=== PATIENT | female | born 1995 | race Caucasian/White ===

== ENCOUNTER 2023-11-19 08:52 | Emergency (ER) | payer BC, SELFPAY ==
[2023-11-19 09:06] VITALS: BP 128/90; PULSE 79; RESP 18; TEMP 36.6; O2SAT 99
--- NOTE | 2023-11-19 09:27 | ED.URI ---
HPI - URI/Sore Throat General Chief Complaint: Upper Respiratory Infection Stated Complaint: Cough Time Seen by Provider: 11/19/23 09:27 Source: patient and RN notes reviewed Mode of arrival: ambulatory Limitations: no limitations History of Present Illness HPI Narrative: 27-year-old female presents to the [facility] with complaints of a cough, congestion, sore throat and headache for 3 days. Tried taking NyQuil last night as well as Mucinex yesterday. Onset (ago): day(s) (3) Treatments prior to arrival: cold medicine Related Data Allergies Allergy/AdvReac Type Severity Reaction Status Date / Time No Known Allergies Allergy Verified 11/19/23 09:44 Review of Systems Review of Systems: All systems reviewed & are unremarkable except as noted in HPI and below Constitutional: Constitutional: Reports no additional constitutional complaints Eyes: Eyes: Reports no additional eye complaints ENT: Reports as per HPI Cardiovascular: Cardiovascular: Reports no additional cardiovascular complaints, Denies chest pain and Denies dyspnea Respiratory: Respiratory: Reports as per HPI, Denies chest congestion, Reports cough and Denies dyspnea Gastrointestinal: Gastrointestinal: Reports no additional gastrointestinal complaints, Denies abdominal pain, Denies nausea and Denies vomiting Musculoskeletal: Musculoskeletal: Reports no additional musculoskeletal complaints Integumentary/Breasts: Skin/Breast: Reports system reviewed and no additional complaints, except as docu Neurologic: Reports system reviewed and no additional complaints, except as documented Psychiatric: Psychiatric: Reports no additional psychiatric complaints Allergic/Immunologic: Allergic/Immunologic: Reports no additional allergic/immunologic complaints PMFSH Comments At the time of my signature, I reviewed and agree with the nursing past medical, surgical, social, and family history. There is no relevant family history pertinent to the patient complaint. Exam Const: General: cooperative, healthy appearing, comfortable, no acute distress, well developed, alert and well nourished Nutritional Appearance: well nourished Orientation/consciousness: patient oriented x3 Limitations: no limitations HENMT: Head: normal to inspection Ears: hearing grossly normal bilaterally, external ears normal, EAC's normal, mastoids normal, no periauricular adenopathy and TM abnormal with fluid behind the TM bilateral; not erythematous Face/Nose/Sinus: Normal external nose present, Normal nares present, Normal nasal mucous membranes and turbinates present, normal facial exam and face symmetric Face and sinus: normal facial exam and face symmetric Mouth: Yes Normal oral and palatal mucosa present, Yes lip normal and Yes tongue normal Throat: uvula midline, postnasal drainage and no uvular edema Eyes: General: appearance normal, both eyes and all related structures Alignment and Position: alignment normal Periorbital: periorbital findings normal Pupils: Equal, round and reactive pupils present EOM: EOMs intact bilaterally Neck: Neck: normal visual inspection, full ROM, no lymphadenopathy and no meningeal signs Chest: Chest palpation & inspection: normal inspection of the chest Resp: Effort & Inspection: normal respiratory effort and able to speak in complete sentences Auscultation: clear to auscultation bilaterally, no crackles, no rales, no rhonchi and no wheezes Cardio: Rate: regular rate Rhythm: regular rhythm Skin: General skin exam: normal color and no rashes or lesions noted Lesions: no lesions Rashes: no rashes Trauma: no lacerations or abrasions Wounds: no wounds Neuro: General: patient oriented x3, gait normal, tone normal, moves all extremities and no meningeal signs Cranial nerves: Yes Equal, round and reactive pupils present Cognition (Neuro): normal cognition Speech: normal speech Gait exam (Neuro): Normal gait present Extrem: General: normal to inspection,
== END 2023-11-19 10:00 | disposition home or self-care (01) ==
PROVIDERS: Emergency Provider Nurse Practitioner
DX: R09.82 Postnasal drip (principal); H65.03 Acute serous otitis media, bilateral; Z20.822 Contact with and (suspected) exposure to COVID-19
CPT/HCPCS: 87081; 87426; 87804; 87880; 99213; G0463

== ENCOUNTER 2023-12-09 13:02 | Emergency (ER) | payer BC, SELFPAY ==
--- NOTE | 2023-12-09 13:06 | ED.URI ---
HPI - URI/Sore Throat General Chief Complaint: Upper Respiratory Infection Stated Complaint: cough Time Seen by Provider: 12/09/23 13:06 Source: patient Mode of arrival: ambulatory Limitations: no limitations History of Present Illness HPI Narrative: Paulina is a 27-year-old female patient presenting to the clinic today with complaints of a cough and nasal congestion. Nasal congestion is been going on for 2-3 weeks but has now developed a nonproductive cough. Cough is worse in the morning and at nighttime. She states that she has stopped vaping over the last couple weeks and associated the cough to this. Found out that her parents have COVID and she was around them over the weekend. She reports she did at home COVID test and it was positive. She is wanting to come in today to be evaluated and have another COVID test done to be sure so she can notify her work. She denies any fever, chills, chest pain, or shortness of breath. MD elicited complaint: cough and nasal congestion Related Data Home Medications Medication Instructions Recorded Confirmed fluticasone propionate 50 2 spray intranasal DAILY PRN 12/09/23 12/09/23 mcg/actuation nasal Allergy Symptoms spray,suspension (Flonase Allergy Relief) loratadine 10 mg tablet 10 mg PO DAILY PRN Allergy Symptoms 12/09/23 12/09/23 Allergies Allergy/AdvReac Type Severity Reaction Status Date / Time No Known Allergies Allergy Verified 12/09/23 13:04 Review of Systems Review of Systems: Pertinent positives per HPI. Patient denies any fever, chills, rash, headache, visual changes, dizziness, shortness of breath, chest pain, palpitations, nausea, vomiting, diarrhea, constipation, abdominal pain, or any urinary issues. PMFSH Comments At the time of my signature, I reviewed and agree with the nursing past medical, surgical, social, and family history. There is no relevant family history pertinent to the patient complaint. Exam Narrative: General: Well-developed, well nourished, in no apparent distress Head: Normocephalic, atraumatic Eyes: Pupils equally round and reactive to light bilaterally, EOM intact, sclera and conjunctive clear, no discharge, lids normal Ears: TMs intact and clear, ear canals clear, no drainage, grossly hearing normal. Nose: Nares patent, clear nasal discharge, moderate inflammation, no sinus tenderness. Mouth: Oral pharynx without lesions or masses, good dentition, MMM. Neck: Supple, trachea midline, no enlargement of anterior or posterior cervical nodes, no thyroid masses or goiter palpable. Cardio: Regular rate and rhythm, s1 and s2 normal, no murmur appreciated. Resp: Clear to auscultation bilaterally, no rhonchi, rales, wheezing or rubs Course Course Emergency Course: Portions of this record may have been created with voice recognition software. Level of Care: Express Care Visit Vital Signs Vital signs: Vital signs reviewed MDM - URI/Sore Throat MDM Narrative Medical decision making narrative: At the time of visit patient is resting comfortably on the exam table. Patient appears to be nontoxic. Labs: Covid testing was positive in the clinic today. Plan: I suspect patient has bronchitis with positive COVID. Prescription for albuterol inhaler was sent to pharmacy and work note was given to the patient. Supportive measures were discussed with the patient and they voiced understanding discharge instructions and agrees to treatment plan. Return precautions reviewed Differential Diagnosis Differential diagnosis: Likely upper respiratory infection, otitis media, sinusitis, viral infection, bronchitis, influenza, pharyngitis and other Discharge Plan Discharge Clinical Impression: Bronchitis, COVID-19 Patient Disposition: Home, Self-Care Condition: Stable Instructions: Antibiotic Form, Acute Bronchitis (ED), COVID-19 (Coronavirus Disease 2019) (ED) Additional Instructions: COVID testing was positive in the c
[2023-12-09 13:10] VITALS: BP 138/94; PULSE 82; RESP 20; TEMP 36.6; O2SAT 97
== END 2023-12-09 13:30 | disposition home or self-care (01) ==
PROVIDERS: Emergency Provider Nurse Practitioner Family
DX: J40 Bronchitis, not specified as acute or chronic (principal); U07.1 COVID-19
CPT/HCPCS: 87426; 99213; G0463

== ENCOUNTER → 2023-12-14 13:48 | Outpatient (CLI) | payer BC, SELFPAY ==
--- NOTE | ~2023-12-14 | XR_ITS ---
EXAMINATION: XR chest 2V 12/14/2023 14:04 INDICATION: Productive cough PROCEDURE: 2 view chest COMPARISON: No prior studies for comparison. FINDINGS: The lungs are clear. The cardiomediastinal silhouette is within normal limits. There are no pleural effusions. There is no pneumothorax suspected. IMPRESSION: 1: NO ACUTE CARDIOPULMONARY DISEASE. Reviewed, dictated and finalized at location B.
== END ==
LOC: EXPCRAD 13:51
PROVIDERS: PCP Emergency Medicine; Visit Provider Emergency Medicine
DX: R05.9 Cough, unspecified (principal); F17.290 Nicotine dependence, other tobacco product, uncomplicated
CPT/HCPCS: 71046

== ENCOUNTER 2024-07-21 11:30 | Emergency (ER) | payer BC, SELFPAY ==
[2024-07-21 11:39] VITALS: BP 132/85; PULSE 132; RESP 16; TEMP 36.8; O2SAT 99
--- NOTE | 2024-07-21 11:53 | ED_ITS ---
HPI - URI/Sore Throat General Chief Complaint: Upper Respiratory Infection Stated Complaint: flu exp cough,tired Time Seen by Provider: 07/21/24 11:53 Source: patient, RN notes reviewed and old records reviewed Mode of arrival: ambulatory Limitations: no limitations History of Present Illness HPI Narrative: Patient presents with complaints of flu-like symptoms since yesterday. She has been taking Tylenol and ibuprofen with moderate relief. She reports that she was exposed to her boyfriend who is positive for influenza A. She is requesting work note Related Data Home Medications ?Medication ?Instructions ?Recorded ?Confirmed ?Last Taken ?Type No Home Medications 07/21/24 07/21/24 Unknown History Allergies Allergy/AdvReac Type Severity Reaction Status Date / Time No Known Allergies Allergy Verified 07/21/24 11:50 Review of Systems Review of Systems: All systems reviewed & are unremarkable except as noted in HPI and below Constitutional: Constitutional: Reports no additional constitutional complaints, Reports body ache(s), Reports chills and Reports headache(s) ENT: Reports system reviewed and no additional complaints, except as documente d, Reports nasal congestion, Reports nasal discharge and Reports sore throat Cardiovascular: Cardiovascular: Reports no additional cardiovascular complaints Respiratory: Respiratory: Reports no additional respiratory complaints and Reports cough Gastrointestinal: Gastrointestinal: Reports no additional gastrointestinal complaints PMFSH Comments At the time of my signature, I reviewed and agree with the nursing past medical, surgical, social, and family history. There is no relevant family history pertinent to the patient complaint. Exam Const: General: cooperative, no acute distress, alert and awake Orientation/consciousness: oriented to person, oriented to place and oriented to time HENMT: Head: normal to inspection Ears: TM's normal bilaterally Resp: Effort & Inspection: normal respiratory effort and able to speak in complete sentences Auscultation: clear to auscultation bilaterally, no crackles, no rales, no rhonchi and no wheezes Cardio: Palpation: normal PMI Rate: regular rate Rhythm: regular rhythm Heart sounds: S1 normal heart sound present and S2 normal heart sound present Neuro: General: oriented to person, oriented to place and oriented to time Cranial nerves: Yes CN's II-XII intact bilaterally Psych: Appearance: grossly normal Thought process: Normal thought process present Insight: Good insight present (Psych) Judgement: Good judgement present (Psych) Course Course Level of Care: Express Care Visit Vital Signs Vital signs: Vital Signs Temperature 98.2 F 07/21/24 11:39 Pulse Rate 132 H 07/21/24 11:39 Respiratory Rate 16 07/21/24 11:39 Blood Pressure 132/85 07/21/24 11:39 Pulse Oximetry 99 07/21/24 11:39 Oxygen Delivery Room Air 07/21/24 11:39 Temperature 98.2 F 07/21/24 11:39 Pulse Rate 132 H 07/21/24 11:39 Respiratory Rate 16 07/21/24 11:39 Blood Pressure 132/85 07/21/24 11:39 Pulse Oximetry 99 07/21/24 11:39 Oxygen Delivery Room Air 07/21/24 11:39 Reviewed MDM - URI/Sore Throat MDM Narrative Medical decision making narrative: Positive influenza a. Supportive care measures discussed. Patient nontoxic appearing, stable for discharge home. Work note provided. Discharge instructions reviewed with patient, as well as provided in writing per nursing staff. The instructions also include specific and strict return/GO TO THE ER as well as f/u information. All questions have been answered, and the patient deny any further questions with discharge and discharge plan. Some parts of this dictation were generated by voice recognition software and may contain typographical and/or grammatical inaccuracies. Differential Diagnosis Differential diagnosis: Likely upper respiratory infection, otitis media, viral infection, influenza and pharyngitis Medical Records Attestation: I reviewed the patient's medical records. Lab Data Attestation: I reviewed the patient's lab results. Discharge Plan Discharge Clinical Impression: Influenza Patient Disposition: Home, Self-Care Condition: Stable Instructions: Antibiotic Form, Influenza (ED) Additional Instructions: Use [id number] medications to treat symptoms. Follow package instructions. Follow-up with primary care provider. Emergency department for new or worse symptoms Patient Language: Yoruba Prescriptions: No Action No Home Medications Follow-up/Referrals: PHYSICIAN,INSERT MOLDING OPERATOR [Primary Care Provider] - Stand Alone Forms: Work/School Release IP Time of Disposition: 11:57
[2024-07-21 13:36] LABS: EDCOVIDSCREEN Negative (Negative); EDINFLUASCREEN Positive (Negative); EDINFLUBSCREEN Negative (Negative)
== END 2024-07-21 12:01 | disposition home or self-care (01) ==
PROVIDERS: Emergency Provider Nurse Practitioner Family
DX: J10.1 Influenza due to other identified influenza virus with other respiratory manifestations (principal); Z20.822 Contact with and (suspected) exposure to COVID-19
CPT/HCPCS: 87426; 87804; 99213; G0463

== ENCOUNTER 2024-12-21 07:33 | Emergency (ER) | payer BC, SELFPAY ==
[2024-12-21] VITALS (8 sets, daily range): BP systolic 115–138; BP diastolic 78–96; PULSE 70–105; RESP 15–20; TEMP 36.3–36.8; O2SAT 94–100
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
--- OUTSIDE RECORDS SUMMARY | 2024-12-21 07:50 | XMS_ITS | Data Portability ---
Author Organization [facility] [place] Address [address] [place] [address] Assessment Encounter Date Assessment Date Assessment LastModified by Organization Details LastModified Time 09/14/2023 09/14/2023 Annual gynecological exam performed. Patient will come back in a year unless there are new symptoms. [email or web address] Not available 09/12/2023 17:40:54 10/17/2024 10/17/2024 Annual gynecological exam performed. Patient will come back in a year unless there are new symptoms. [email or web address] Not available 10/17/2024 09:41:45 Plan of Treatment Reminders Order Date Submit Date Provider Last Modified By Organization Details Last Modified Time Details Appointments None recorded. Lab CT + NG + TV, RNA, unspecified specimen 2024 025 [facility] (Lab), [address], [place], [address], 12:02:42 Referral None recorded. Procedures None recorded. Surgeries None recorded. Imaging None recorded. Medication Orders Bactrim DS 800 mg-160 mg tablet 2024 025 [id number], [address], [place], [place], [id number], 09:58:44 metronidazo le 500 mg tablet 2023 024 [email or web address] [facility] [address], [place], [place], [id number], 5 09:42:20 metronidazo le 500 mg tablet 2021 [email or web address] [facility] #28826, [address], [place], [place], [id number], 5 09:42:20 Diflucan 150 mg tablet 2021 022 [email or web address] [facility] #01895, [address], [place], [place], [id number], 4 17:41:05 Patient TargetsNo targets recorded. Patient InstructionsNo instructions recorded. Reason for Referral None Reported. Results Created Date Observation Date Name Description Value Unit Range Abnormal Flag Note LastModifiedBy Organization Detail LastModifiedTime 09/14/19 24 09/14/2023 IMAGE GUIDE D PAP, REFLE X HPV IF ASCUS ONLY image guided Pap, reflex HPV ASCUS only SEE RESULT S BELOW CASE REPOR T: Cytol ogy Gynec ologi courtney Repor t Case: [id number] Autho lacey g Provi michelle: Helga Marquez, MONIQUE Colle cted: 09/13 1211 Order ing Locat ion: [place] Patho log[facility] Recei jabari: 09/16 0853 First Scree n: Alysha Harris ay, CT Rescr een: Trang Wiseman Speci men: Scree paresh Pap - Image d, Cervi x STATE MENT OF ADEQU ACY: Satis facto ry for evalu ation Trans forma tion zone compo nent absen t The absen ce of an endoc ervic al compo nent was confi rmed by an addit ional scree ner. FINAL DIAGN OSIS: Negat josey for Intra epith elial Trevin patricia or Neil mora (NIL) . Elect georgia hernandez sis d by Trang Wiseman on 2023 at 3:58 PM ----- ----- ----- ----- ----- ----- ----- ----- ----- ----- ----- ----- ----- ----- ----- ----- ----- ---- COMME NT: This speci men was revie wed by a Cytot echno logis t and/o r Patho logis t (as indic ated in this repor t) after evalu ation using the Thinp rep Imagi ng Syste m. CLINI COURTNEY INFOR MATIO N: Menst rual Statu s: LMP (if appli cable ): Clini courtney Histo ry/Pr eviou s Pap: Type of Neopl mark (if appli cable ): Signi fican t Clini courtney Findi ngs: Other Histo ry: Hormo kevin (if appli cable ): PAP EDUCA KEIRY L NOTE: The Pap Test is a scree paresh test with an inher ent false negat josey rate. Liqui d-bas ed sampl ing may decre ase, but will not elimi missy, false negat josey resul ts. A negat josey resul t does not precl ude the prese nce and/o r devel opmen t of disea se, since the prese nce of abnor mal cells in the sampl e depen ds on the locat ion of the lesio n and sampl ing techn ique. Syl nued regul ar scree paresh is the best metho d of cance r preve ntion . If repor ros cytol ogic findi ng do not corre late with physi courtney and/o r histo rical findi ngs, furth er inves tigat ion is recom harrison d, as clini delmi chavez nted. Not Available [facility] (Lab) [address], [place], [address], 09/19/2023 17:01:15 09/14/19 24 09/14/2023 TRICH OMONA S VAGIN ARIANNA (RRNA ) trichomonas vaginalis ribosomal RNA (rrna) Negati ve negati ve Not Available [facility] (Lab) [address], [place], [address], 09/19/2023 17:01:16 04/12/20 24 09/14/2023 CT/GC (TAYLER) , THINP REP VIAL chlamydia trachomatis, PCR Negati ve negati ve Not Available [facility] (Lab) [address], [place], [address], 09/19/2023 17:01:16 09/14/19 24 09/14/2023 CT/GC (TAYLER) , THINP REP VIAL neisseria gonorrhoeae, PCR Negati ve negati ve Not Available [facility] (Lab) [address], [place], [address], 09/19/2023 17:01:16 10/18/19 25 10/17/2024 CT/GC AND TRICH OMONA S VAGIN ARIANNA (RRNA ), SWAB chlamydia trachomatis, PCR Negati ve negati ve Not Available [facility] (Lab) [address], [place], [address], 10/18/2024 12:02:42 10/18/19 25 10/17/2024 CT/GC AND TRICH OMONA S VAGIN ARIANNA (RRNA ), SWAB neisseria gonorrhoeae, PCR Negati ve negati ve Not Available [facility] (Lab) [address], [place], [address], 10/18/2024 12:02:42 10/18/19 25 10/17/2024 CT/GC AND TRICH OMONA S VAGIN ARIANNA (RRNA ), SWAB trichomonas vaginalis ribosomal RNA (rrna) Negati ve negati ve Not Available [facility] (Lab) [address] [place], [address], 10/18/2024 12:02:42 Result Notes None recorded. Medical Equipment None Reported. Allergies No known drug allergies Medications Name Sig Start Date Stop Date Status Note LastModified by Organization Details LastModified Time azithromyci n 250 mg tablet TK 2 TS PO ON DAY 1, THEN TK 1 T PO D FOR 4 DAYS 10/17 completed Not Available Not Available Not Available fluconazole 150 mg tablet TAKE 1 TABLET BY MOUTH EVERY DAY WITH MEALS FOR 1 DAY 09/11 completed Not Available Not Available Not Available metronidazo le 500 mg tablet TAKE 1 TABLET BY MOUTH TWICE DAILY WITH MEALS FOR 7 DAYS 10/17 completed Not Available Not Available Not Available sulfamethox azole 800 mg-trimetho prim 160 mg tablet TAKE 1 TABLET BY MOUTH EVERY 12 HOURS FOR 7 DAYS active Not Available Not Available No t Available methylpredn isolone 4 mg tablets in a dose pack FOLLOW PACKAGE DIRECTION S 10/17 completed Not Available Not Available Not Available albuterol sulfate HFA 90 mcg/actuati on aerosol inhaler INHALE 2 PUFFS BY MOUTH EVERY 4 TO 6 HOURS NEEDED FOR SHORTNESS OF BREATH OR WHEEZING 10/17 completed Not Available Not Available Not Available fluticasone propionate 50 mcg/actuati on nasal spray,suspe nsion SHAKE LIQUID AND USE 2 SPRAYS IN EACH NOSTRIL DAILY 10/17 completed Not Available Not Available Not Available loratadine 10 mg tablet TAKE 1 TABLET BY MOUTH DAILY 10/17 completed Not Available Not Available Not Available Vitals Date Recorded Body height Body mass index (BMI) Body weight Systolic And Diastolic Provider Name and Address Organization Details Last Updated DateTime 09/14/2023 160.02 cm 40.4 kg/m2 120745.06 g 139/84 mm[Hg] Darlin Freeman [facility] 09/14/2023 12:07:23 Date Recorded Body weight Body mass index (BMI) Body height Systolic And Diastolic Provider Name and Address Organization Details Last Updated DateTime 10/17/2024 747135.89 g 42.5 kg/m2 160.02 cm 120/77 mm[Hg] Andie Hylton [facility] 10/17/2024 09:40:27 Date Recorded Body height Body mass index (BMI) Body weight Systolic And Diastolic Provider Name and Address Organization Details Last Updated DateTime 03/28/2022 160.02 cm 38.4 kg/m2 50051.54 g 112/76 mm[Hg] Katie Montano [facility] 03/28/2022 15:19:10 Social History Question Answer Notes LastModified by Organizat ion Details LastModified Time Tobacco Smoking Status Former Sm[facility]/17[facility]2024 09:44:09 Do You Have An Advance Directive? No Information n ot available 03/28/2022 How Many Years Have You Consumed Alcohol? 11 Information not available 03/28/2022 Are You Blind Or Do You Have Difficulty Seeing? No [email or web address] Information n ot available 03/11/2022 What Is Your Level Of Caffeine Consumption? Heavy Information not available 03/28/2022 In The 14 Days Before Symptom Onset, Have You Had Close Contact With A Laboratory-confirm ed COVID-19 While That Case Was Ill? No [email or web address] Information n ot available 03/11/2022 In The 14 Days Before Symptom Onset, Have You Had Close Contact With A Person Who Is Under Investigation For COVID-19 While That Person Was Ill? No Information not available 03/11/2022 Have You Been To An Area Known To Be High Risk For COVID-19? No [email or web address] Information not available 03/11/2022 Are You Deaf Or Do You Have Serious Difficulty Hearing? No [email or web address] Information not available 03/11/2022 What Type Of Diet Are You Following? REGULAR [email or web address] Information n ot available 03/11/2022 What Is The Highest Grade Or Level Of School You Have Completed Or The Highest Degree You Have Received? [id number] Information not available 03/28/2022 Are There Any Guns Present In Your Home? No Information not available 03/28/2022 Have You Ever Been Counseled For Unhealthy Alcohol Use? No Information not available 03/28/2022 Do You Use Protection During Sex? Usually Information not available 03/28/2022 Do You Use Your Seat Belt Or Car Seat Routinely? Yes [email or web address] Information not available 03/11/2022 Do You Have Smoke And Carbon Monoxide Detectors In Your Home? Yes [email or web address] Information not available 03/11/2022 At What Age Did You Start Smoking Tobacco? 15 Information not available 03/28/2022 How Much Tobacco Do You Smoke? 1 PPD Information not available 03/28/2022 Do You Use Sunscreen Routinely? No Information not available 03/28/2022 How Many Years Have You Smoked Tobacco? 11 Information not available 03/28/2022 Have You Used IV Drugs? No Information not available 03/28/2022 Do You Have Difficulty Walking Or Climbing Stairs? No Information not available 03/28/2022 Sex: Unknown Functional Status Question Answer Note LastModified by Organizat ion Details LastModified Time Do you use any illicit or recreational drugs? No [email or web address] Information not available 03/11/2022 Do you or have you ever used any other forms of tobacco or nicotine? Yes [email or web address] Information not available 10/17/2024 What is your level of alcohol consumption? Occasional [email or web address] Information not available 03/11/2022 Are you able to walk? YESWOREST [email or web address] Information not available 03/11/2022 Are you able to care for yourself? 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 No Information not available 03/28/2022 Do you or have you ever used e-cigarettes or vape? Current user of electronic cigarettes [email or web address] Information not available 10/17/2024 What is your exercise level? Occasional [email or web address] Information not available 03/11/2022 Mental Status Question Answer Note LastModified by Organization D etails LastModified Time Do you feel stressed (tense, restless, nervous, or anxious, or unable to sleep at night)? [id number] Information not available 03/28/2022 Family History Nothing Reported. Medical History Condition Response Allergies (Food, seasonal, environmental ) N Other N Breast Cancer N Drug/Latex Allergies/Reactions N Blood Transfusion N Dermatologic Disorders N Lung Disease N Defects or Inherited Disease N Breast Problem N Gestational Diabetes N Hematologic disorders N Anesthesia Complications N History of STI N Deep Vein Thrombosis N Polycystic ovary syndrome N Anxiety Disorder N Autoimmune disease N Arthritis N Infertility N Polyps N Acid Reflux (GERD) N History of abnormal pap N Cancer N Stroke N Varicosities N Neurologic/Epilepsy N Endometriosis N High Cholesterol N Headaches N Fibromyalgia N Kidney Disease N Heart Problems N Kidney or Bladder Problems N Thyroid Problems N GI Problems N Eating Disorder N Anemia N Art (IVF or FET) N Psychiatric Illness N Ovarian Cancer N Diabetes N Pulmonary (TB, Asthma) N Hepatitis/Liver Disease N No Past Medical History Y Eczema N Urinary Tract Infection N Abuse/Domestic Violence N Asthma N Trauma/Violence N Depression/ depression N Heart Disease N Pre-Eclampsia N Hypertension N Osteoporosis N Thrombophilias N Gynecological History Statement/Question Response Abnormal Pap N Flow Moderate Date of Last Mammogram Date of LMP 09/25/2024 N On BCP's at Conception? N STIs/STDs N Was last menstrual period normal Y HPV Vaccine N Duration of Flow (days) 5 Current Control Method Withdrawal Age at First Child 20 Are cycles usually normal Y Date of Last Colonoscopy Frequency of Cycle (Q days) 28 Sexually Active? Y Menses Monthly Y Date of DEXA bone scan Age of first menstrual cycle 14 Date of Last Pap Smear Sexual Problems? N LMP Approximate N Obstetrics History GPAL:G 1 P 1 0 0 1 Type Value Full Term 1 Living 1 Total 1 Past Encounters Encounter ID Performer Location Encounter Start Date Encounter Closed Date Diagnosis/Indication Diagnosis SNOMED-CT Code Diagnosis ICD10 Code [facility] [id number] [facility] [address] [address] 03/28/2022 15:05:27 03/28/2022 16:02:26 Vaginitis 63654856 N76.0 Today we agreed to treat suspect BV and yeast. Counseled on medication R/B's, Most common side effects, & use. All questions were answered to patient satisfacti on. Declined std screen Time spent in visit is a total of 15 mins with at least 50% of visit consisting of counseling and review of plan of care. [id number] JENNA Conrad [place] [address] [address] 09/14/2023 12:03:48 09/14/2023 12:38:32 Gynecologic examination 83836158 Z01.419 WWEBC - condomspap updatedgc/ ct/trich testing added to paproutine labs - PCPRTC in 1 yr or sooner if needed Take Calcium with Vitamin D daily if not receiving in daily diet.It is strongly advised to have an annual flu shot and up can obtain at most pharmacies . If you have not had a TDap shot in the last 10 years you should obtain one as well. Discussed with patient & provided with informatio n regarding Gardisil vaccine to prevent the 4 strains for HPV that cause cervical cancer if under age 26.Encoura ge safe sexual practices, to use condoms and limit partners if not already in a monogamous relationsh ip.Do monthly self breast exams. BRCA testing is now available for patients with strong genetic history of female cancer. If interested contact the office. Engage in regular exercise. Avoid tobacco and illicit drugs. This lifestyle behavior pattern will lead to less health conditions and longer life span. If BMI greater than 25 dietary consult advised. Patient received above instructio ns, and questions have been answered. If you have any questions please call or respond to this email. Patient was made aware of the patient portal and may obtain a paper copy of today's plan if desired. Venereal d isease screening 276879594 Z11.3 Vaginitis 31366771 N76.0 suspect BVrx sent - r/b/a reviewedvu lvar care guidelines discussed (do not douche) [id number] JENNA Conrad [place] [address] [address] 10/17/2024 09:30:54 10/17/2024 10:51:02 Gynecologic examination 64062568 Z01.419 WWEBC - declinedPa p - not indicated today, due screen - gc/ct/tric h testing done per requestRou avel labs - PCPRTC in 1 yr or sooner if needed It is strongly advised to have an annual flu shot and up can obtain at most pharmacies . If you have not had a TDap shot in the last 10 years you should obtain one as well. Discussed with patient & provided with informatio n regarding the HPV vaccine if applicable . Encourage safe sexual practices, to use condoms and limit partners if not already in a monogamous relationsh ip. Do monthly self breast exams. BRCA testing is now available for patients with strong genetic history of female cancer. If interested contact the office. Engage in regular exercise. Avoid tobacco and illicit drugs. This lifestyle behavior pattern will lead to less health conditions and longer life span. If BMI greater than 25 dietary consult advised. Questions answered. Cyst of Ba rtholin's gland duct 11887268 N75.0 expectant management discussed - warm compress, sitz bathrx bactrimdis cussed I&D if does not resolve and/or becomes symptomati cprecautio ns reviewed Venereal d isease screening 078734839 Z11.3 Health Concerns Section Related Observation LastModified by Organization Detai ls LastModified Time None Recorded Concern Status LastModified by Organization Details LastModified Time None Recorded Advance Directives Directive N: Payers Insurance Date Sequence Insurance Name Policy Number Policy Burkett Covered Member ID Burkett Member ID Guarantor Name 10/17/2024 1 [facility] [id number] Paulina Vanegas [id number] Paulina Vanegas 09/26/2024 1 *SELF PAY* Ca enoch Vanegas Notes Date Note Type Note Provider Name and Address Organization Details Recorded Time 03/28/2022 text/html Vaginal/Vulvar ProblemReported bypatient.Location:[facility] Onset/Timing:abrupt Duration:present for 1-7 days; intermittent Quality:itching (+D/C); irritation Severity:mild Context:sexually active (Monogamous) Alleviating Factors:none; OTC antifungal medication (Did not help her issues) Aggravating Factors:OTC antifungal medication Associated Symptoms:no vaginal pain; no vulvar swelling/erythema; no vulvar pain; no vulvar lesions; no pelvic pain; no dyspareunia; no dysuria; no fever; no abdominal pain;vaginal itching;vaginal irritation;vulvar itching/irritation Kamille Lopez, [facility]- [address], [place], [address], [facility] 03/28/2022 15:59:55 09/14/2023 text/html Annual GYNReport ed bypatient.Menstrual cycle:Normal menses Urinary symptoms:No hematuria; No incontinence Vulva:No genital lesion Vagina:Normal vaginal discharge Breast:No breast pain; No breast lump; No nipple discharge Current Contraception:Satisf ied with current contraception; Condoms Sexual complaints:No sexual complaints; No pain during intercourse; Normal libido Menopausal Symptoms:No menopausal symptoms; Normal vaginal lubrication Psychological symptoms:No depression; No anxiety; No PMDD Preventive measures:Encourage self breast examination; Encourage regular exercise; Encourage no tobacco use; Encourage regular mammograms starting age 40Notes:WWEBC - condomsno h/o of abnormal paps, unsure when last pap wasnew partner recentlyodor and discharge for a few monthsdouches oftenneg pelvic pain, n/v/f, or flu-like symptoms JENNA Conrad [address], [place], [address], [place] [facility] 09/14/2023 12:25:13 10/17/2024 text/html Annual GYNReport ed bypatient.Menstrual cycle:Normal menses Urinary symptoms:No hematuria; No incontinence Vulva:Painless genital lesion Vagina:Normal vaginal discharge Breast:No breast pain; No breast lump; No nipple discharge Current Contraception:Satisf ied with current contraception; withdrawal Sexual complaints:No sexual complaints; No pain during intercourse; Normal libido Menopausal Symptoms:No menopausal symptoms; Normal vaginal lubrication Psychological symptoms:No depression; No anxiety; No PMDD Preventive measures:Encourage self breast examination; Encourage regular exercise; Encourage no tobacco use; Encourage regular mammograms starting age 40Notes:28yo wweB - withdrawallast pap 2023 nilm bump on right side of vaginal opening. Noticed 1-2 wks ago. No tenderness/pain/odor s/discharge/or itching Andie johnson, [facility] 10/17/2024 13:56:42 OBGyn Episode Ob Episode Information Episode Created Date Number of Fetuses Patient Bloodtype Patient rh Status Prepregnancy Weight lbs Domestic Partner Domestic Partner Phone Father Name Powder Room Attendant Status 03/11/20 22 1 CLOSED Fetus Data First Name Last Name Admitted to NICU Weight (g) Sex Living Outcome Pediatric Complications Fetus ID Race Codes Race Delivery Type 2579.57 [id number] F Full Term [id number] Vaginal Delivery Jc Calculation Initial Jc Date Initial Exam Date Initial Exam Provider Initial Ultrasound Date Last Menstrual Period Date Ultra Sound Weeks Gestation 0 Eighteen To Twenty Week Jc Update Ultra Sound Date Fundal Height At Umbil Quickening Date Ultra Sound Latest Weeks Gestation Final Jc Confirmed By Final Jc Confirmed Date Final Jc Date Ultra Sound Latest Days Gestation 0 0 Menstrual History Last Menstrual Date Menses Monthly On Bcp Conception Prior Menses Frequency Hcg Plus Date Menarche Onset Age Delivery Information Delivery Date Delivery Type Labor Anesthesia Weeks Gestation Incision Type Labor Labor Length Hrs Delivered By Post Complications Tubal Sterilization Discharge Date Comments 7 40 Discharge Information Feeding Method Contraceptive Method Maternal HG B and HCT Levels
--- NOTE | 2024-12-21 08:07 | PC.NURSE ---
Pt is currently declining labs including blood draw and u/a sample. Pt used restroom and dumped urine in the trashcan.
[2024-12-21 09:28] LABS: Hematocrit 37.3 % (37.0-47.0); Hemoglobin 12.7 g/dL (12.0-15.0); Immature Granulocyte Percent A 0.5 % (0-0.5); Lymphocytes Absolute Auto 1.79 K/mm3 (0.9-3.2); Mean Corpuscular HGB Conc 34.0 g/dl (32-36); Mean Corpuscular Hemoglobin 31.9 pg (26-34); Mean Corpuscular Volume 93.7 fl (80-100); Nucleated Red Blood Cells Absolute Auto 0.000 K/mm3 (0.0-0.012); Nucleated Red Blood Cells Perc 0.0 % (0.0-0.2); Platelet Count Result 324 k/mm3 (150-375); Red Blood Count 3.98 M/mm3 (4.2-5.4); White Blood Count 8.4 K/mm3 (4.5-10.0)
[2024-12-21 09:54] LABS: Acetaminophen < 10 ug/mL (10-30); Salicylate < 1.0 mg/dL (2-20)
[2024-12-21 10:13] LABS: Alanine Aminotransferase 35 U/L (6-35); Albumin Level 4.9 g/dL (3.5-5.1); Alkaline Phosphatase 74 U/L (38-126); Anion Gap 12 mmol/L (4-12); Aspartate Amino Transferase 50 U/L (14-36); Bilirubin,Total 0.7 mg/dL (0.2-1.3); Blood Urea Nitrogen 8 mg/dL (7-17); Calcium 9.6 mg/dL (8.4-10.2); Carbon Dioxide 22 mmol/L (22-30); Chloride 104 mmol/L (98-107); Estimated CRCL calculation 94 ml/min; Estimated Glomerular Filt Rate > 60; Glucose 109 mg/dL (65-110); Potassium 3.1 mmol/L (3.4-5.0); Sodium 138 mmol/L (137-145); Total Protein 8.2 g/dL (6.3-8.2)
--- NOTE | 2024-12-21 10:20 | PC.NURSE ---
Pt redirected and was cooperative w/ u/a collection, security and sitter at bedside for elopement precautions. Holding medication at this time due to pt deesculation.
[2024-12-21 10:24] LABS: BEDSIDEPREGUCG Negative (Negative)
[2024-12-21 10:47] LABS: Cannabinoid Screen Urine Positive (Negative)
[2024-12-21 10:49] LABS: Thyroid Stimulating Hormone 2.490 uIU/mL (0.465-4.680)
[2024-12-21 10:53] LABS: Add Urine Microscopic? YES; Appearance Urine Cloudy (Clear); Glucose Urine UA Negative (Negative); Leukocyte Esterase Ur Trace LEU/UL (Negative); Need Manual Microscopic Reviewed; Nitrate Urine Negative (Negative); Non Pathogenic Casts 0-2; Specific Grav Ur 1.012 (1.001-1.035)
[2024-12-21] MEDS: POTASSIUM BICARBONATE 25 MEQ TABEF 50 MEQ PO (11:03)
[2024-12-21 11:07] LABS: Influenza A QL RT-PCR Negative (Negative); Influenza B QL RT-PCR Negative (Negative); RSV RNA, RT-PCR Negative (Negative); SARS-CoV-2 RNA PCR Negative (Negative)
[2024-12-21 11:31] LABS: Magnesium 2.1 mg/dL (1.6-2.3)
[2024-12-21] MEDS: ACETAMINOPHEN 500 MG TABLET 1000 MG PO (11:47)
[2024-12-21] MEDS: HALOPERIDOL LACTATE 5 MG/ML VIAL IM (12:02)
[2024-12-21] MEDS: LORazepam INJ (*CRX) 2 MG/ML VIAL IM (12:03)
--- NOTE | 2024-12-21 12:04 | PC.NURSE ---
security and sitter at bedside, pt attempting to elope and increasing agitation, meds given IM as ordered, VS taken and stable
--- NOTE | 2024-12-21 13:28 | PC.NURSE ---
Pt boyfriencaleb Cash called for update, requesting updates on pt be called to him at [phone], pt gave verbal permission to talk w/ her boyfriend.
== END 2024-12-21 14:18 | disposition home or self-care (01) ==
PROVIDERS: Emergency Provider Student in an Organized Health Care Education/Training Program
DX: R45.851 Suicidal ideations (principal); E87.6 Hypokalemia; R74.01 Elevation of levels of liver transaminase levels; F12.90 Cannabis use, unspecified, uncomplicated; Z11.52 Encounter for screening for COVID-19
CPT/HCPCS: 36415; 80053; 80143; 80179; 80307; 81001; 81025; 82077; 83735; 84443; 85025; 87637; 96372; 99284; A9270; J1630; J2060